=== PATIENT | female | born 1995 | race Caucasian/White ===

== ENCOUNTER 2018-04-23 15:13 | Emergency (ER) | payer OTHER ==
[2018-04-23 17:40] LABS: URINE BLOOD (Dip) POC Trace-intact (NEGATIVE); URINE GLUCOSE (Dip) POC Negative (NEGATIVE); URINE KETONES (Dip) POC Negative (NEGATIVE); URINE LEUKOCYTE EST (Dip) POC 1+ (NEGATIVE); URINE NITRITE (Dip) POC Negative (NEGATIVE); URINE TOTAL PROTEIN POC Negative (NEGATIVE)
[2018-04-23] MEDS: FAMOTIDINE 20 MG TAB PO (17:47)
[2018-04-23] MEDS: LIDOCAINE/MYLANTA 40 ML BTL PO (17:47)
== END 2018-04-23 18:30 | disposition home or self-care (01) ==
LOC: FTE 15:13
DX: N39.0 Urinary tract infection, site not specified (principal); R19.7 Diarrhea, unspecified
CPT/HCPCS: 81003; 81025; 99284